=== PATIENT | male | born 1975 | race Hispanic/Latino ===

== ENCOUNTER 2024-05-05 21:14 | Emergency (ER) | payer SELFPAY ==
[~2024-05-05] VITALS: Ht 180.3 cm; Wt 81.6 kg
[2024-05-05] MEDS ORDERED: AMOX/K CLAV875 M1 PO (22:13)
[2024-05-05] MEDS ORDERED: TYLENOL # 31 TA1 PO (22:13)
[2024-05-05] MEDS ORDERED: HYDROcodone 7.5 MG/Acetaminophen 325 MG/COMBO PO ONE (22:15)
[2024-05-05 22:28] VITALS: BP 140/93
== END 2024-05-05 22:53 | disposition home or self-care (01) | DRG 159 ==
LOC: ED 21:14
DX: K04.7 Periapical abscess without sinus (principal)

== ENCOUNTER 2024-05-08 04:01 | Emergency (ER) | payer SELFPAY ==
[~2024-05-08] VITALS: Ht 180.3 cm; Wt 84.0 kg
[~2024-05-08 04:01] MED LIST: AMOX/K CLAV875 M1 PO; TYLENOL # 31 TA1 PO
[2024-05-08] MEDS ORDERED: IBUPROFEN 600 MG/TAB PO ONE (04:20)
[2024-05-08] MEDS ORDERED: HYDROcodone 7.5 MG/Acetaminophen 325 MG/COMBO PO ONE (04:20)
[2024-05-08 05:15] VITALS: BP 132/92
== END 2024-05-08 05:32 | disposition home or self-care (01) | DRG 159 ==
LOC: ED 04:01
DX: K02.9 Dental caries, unspecified (principal)

== ENCOUNTER 2024-06-26 04:07 | Emergency (ER) | payer SELFPAY ==
[~2024-06-26] VITALS: Ht 172.7 cm; Wt 88.0 kg
[~2024-06-26 04:07] MED LIST changes: +CLINDAMYCIN HY150 MG PO; +TRAMADOL HYDROC50 M1 PO
[2024-06-26] MEDS ORDERED: ONDANSETRON 4 MG/TAB ODT PO ONE (04:20)
[2024-06-26] MEDS ORDERED: KETOROLAC TROMETHAMINE 30 MG/ML SDV IM ONE (04:20)
[2024-06-26] MEDS ORDERED: ONDANSETRON4 MG PO (05:14)
[2024-06-26 05:34] VITALS: BP 123/71
== END 2024-06-26 05:34 | disposition home or self-care (01) | DRG 392 ==
LOC: ED 04:07
DX: A08.4 Viral intestinal infection, unspecified (principal); Z20.822 Contact with and (suspected) exposure to COVID-19